=== PATIENT | female | born 1970 | race Caucasian/White ===

== ENCOUNTER 2021-05-04 10:48 | Emergency (ER) | payer MEDICAID, SELFPAY ==
--- NOTE | ~2021-05-04 | CT_ITS ---
EXAMINATION: CT CHEST WITHOUT CONTRAST CLINICAL INFORMATION: Abnormal chest x-ray, cough and chest pain. COMPARISON: Chest x-ray 05/04/2021 TECHNIQUE: Multidetector volumetric CT imaging of the chest was done. Axial MIP volume rendering provided. Sagittal and coronal reformatted images were obtained. This CT examination was performed using dose optimization techniques as appropriate, variously including the following: *Automated exposure control *Adjustment of mA and/or kV according to patient size (this includes techniques or standardized protocols for targeted exams where dose is matched to indication/reason for exam; i.e. extremities or head) *Use of iterative reconstruction technique DLP: 243 mGy-cm FINDINGS: TRAFFIC INCIDENT MANAGEMENT MANAGER: Hyperinflated lungs. LUNGS: There is diffuse centrilobular emphysematous changes of both lungs. There are a few scattered pulmonary nodules. 5 nodules right upper lobe axial image 23/4, 2 mm nodule peripherally based in the lingula axial image 34/4, 3 m nodule left lower lobe adjacent to major fissure axial image 35/4.. There are addition there are several micronodules seen throughout both lungs. There is ill-defined density seen as well with the largest density right upper lobe measuring 7 mm axial image 196/6, 8 mm axial image 215/6. Mild increase interstitial thickening is seen as well No acute consolidation seen. MEDIASTINUM: The thyroid lobes are symmetrical and normal. The central trachea and the bronchi are widely patent. Heart size and the great vessels are normal caliber. There are small shotty lymph nodes in the mediastinum. No pericardial effusion seen. PLEURA: There is no pleural effusion. No pleural mass or thickening. AXILLA: There are small shotty lymph nodes seen in bilateral axilla. UPPER ABDOMEN: Visualized liver, spleen, pancreas and bilateral adrenal glands are unremarkable. OSSEOUS STRUCTURES: There is mild spondylosis. No aggressive lytic or sclerotic process. CT/CT chest wo con IMPRESSION: Diffuse emphysema with multiple bilateral pulmonary nodules and ill-defined densities throughout both lungs as described above. Findings are suggestive chronic interstitial lung disease. No acute consolidation seen. No abnormal mediastinal or hilar lymph nodes seen. Fleischner guidelines were followed.
--- NOTE | ~2021-05-04 | XR_ITS ---
EXAMINATION: XR CHEST CLINICAL INFORMATION: Chest pain. COMPARISON: None TECHNIQUE: 2 views of the chest were obtained. FINDINGS: The lungs are well expanded with increased bilateral vascular interstitial markings without consolidation or pleural effusion. The heart size is normal. No gross bony abnormality seen. XR/XR chest 2V IMPRESSION: Bilateral increased vascular/interstitial markings suspicious for interstitial edema or pneumonitis. No acute pneumonic consolidation seen.
[2021-05-04 10:56] VITALS: BP 121/76; BP 144/82; PULSE 119; PULSE 122; RESP 14; TEMP 37.4; O2SAT 98; BMI 22.4
--- NOTE | 2021-05-04 11:02 | MHC.RECOVRN ---
Received a call from Jolie at [facility], where [place] [facility] If/when pt is medically cleared t/w will discuss pt returning to with Jolie. Pts RN notified via Mona.
--- NOTE | 2021-05-04 11:26 | ECG_ITS ---
Test Reason : CHEST PAIN Blood Pressure : / mmHG Vent. Rate : 112 BPM Atrial Rate : 112 BPM P-R Int : 140 ms QRS Dur : 088 ms QT Int : 344 ms P-R-T Axes : 072 100 062 degrees QTc Int : 469 ms Sinus tachycardia Rightward axis Borderline ECG No previous ECGs available Referred By: Tiny Schneider Electronically Signed By:SLIME MELGAR
--- NOTE | 2021-05-04 11:42 | ED_ITS ---
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 Patient was at [facility] detox waiting room waiting for detox from alcohol when she started to experience some chest burning which prompted her to call the ambulance for transport. Patient tells me that she has this chest burning intermittently and it is worsened after eating and with lying flat. She has associated belching and nausea with it. She denies any vomiting, fever, diarrhea, abdominal pain, difficulty breathing. Patient drinks 6-7 drinks daily. Her last drink was earlier this morning. She denies any additional substance use. She has not received a COVID vaccine Related Data Allergies Allergy/AdvReac Type Severity Reaction Status Date / Time Unable to Assess Allergy Verified 05/04/21 11:25 Review of Systems Review of Systems: Yes all other systems are reviewed and are negative Constitutional: Constitutional: Reports no additional constitutional co mplaints, Denies body ache(s), Denies chills, Denies fever(s), Denies headache(s) and Denies weakness Eyes: Eyes: Reports no additional eye complaints and Denies change in vision ENT: Reports system reviewed and no additional complaints, except as documented, Denies dizziness, Denies headache(s), Denies nasal congestion, Denies nasal discharge and Denies neck pain Cardiovascular: Cardiovascular: Reports no additional cardiovascular complaints, Reports chest pain, Denies leg edema and Denies dyspnea Respiratory: Respiratory: Reports no additional respiratory complaints, Denies cough and Denies dyspnea Gastrointestinal: Gastrointestinal: Reports no additional gastrointestinal complaints, Denies abdominal pain, Denies diarrhea, Reports nausea and Denies vomiting Genitourinary: Genitourinary: Reports no additional female genitourinary complaints and Denies urinary incontinence Musculoskeletal: Musculoskeletal: Reports no additional musculoskeletal complaints, Denies back pain, Denies arthralgias, Denies joint swelling, Denies neck pain, Denies numbness and Denies tingling Integumentary/Breasts: Skin/Breast: Reports system reviewed and no additional complaints, except as docu and Denies rash Neurologic: Reports system reviewed and no additional complaints, except as documented, Denies Abnormal speech present, Denies dizziness, Denies headache(s) , Denies numbness, Denies tingling and Denies weakness PMFSH Past Medical History Attestation statement: The following information was validated with the patient. Source: old records reviewed and nursing notes reviewed Medical History (Updated 05/04/21 @ 18:28 by Tiny Schneider NP) Transverse myelitis Social History Social History (Updated 05/04/21 @ 11:44 by Tiny Schneider NP) Alcohol intake: current Alcohol intake frequency: 0-2 drinks per day Alcohol type: wine and hard liquor Patient Tobacco Use Status: Current everyday Tobacco user Use of substances other than those prescribed or required for medical reasons: No Advance Directives: No Advance Directives Information Provided: No Physical Exam Vital Signs: Vital Signs: Last Vital Signs Temp 99.4 F 05/04/21 10:56 Pulse 99 05/04/21 16:00 Resp 21 H 05/04/21 16:00 BP 171/100 H 05/04/21 16:00 Pulse Ox 98 05/04/21 16:00 BMI result Body Mass Index 22.4 Const: General: cooperative, healthy appearing, comfortable and no acute distress Orientation/consciousness: patient oriented x3 Limitations: no limitations HENMT: Head: Yes normal to inspection Ears: hearing grossly normal bilaterally General nose exam: Normal external nose present Face and sinus: Yes normal facial exam Mouth: Normal oral and palatal mucosa present Throat: Yes posterior oropharynx normal Eyes: General: appearance normal, both eyes and all related structures Pupils: Equal, round and reactive pupils present Neck: Neck: Yes normal visual inspection Chest: Chest palpation & inspection: normal inspection of the chest Resp: Effort & Inspection: normal respiratory effort Auscultation: clear to auscultation bilaterally Cardio: Rate: regular rate Rhythm: regular rhythm Peripheral pulses: Peripheral pulses 2+ throughout GI: Inspection: Yes normal to inspection Palpation (GI): Soft to palpation and nontender Auscultation: normal bowel sounds Back/Spine/Pelvis: Thoracic/Lumbar Spine: thoracic and lumbar spine normal to inspection Skin: General skin exam: no rashes or lesions noted Neuro: General: patient oriented x3, no focal motor deficits and normal sensation to monofilament Cranial nerves: Yes Equal, round and reactive pupils present Cognition (Neuro): normal cognition Speech: No Abnormal speech present Gait exam (Neuro): Normal gait present Motor exam (neuro): 5/5 motor strength present throughout Extrem: General: Yes normal to inspection, Yes no pedal edema and Yes no calf tenderness Course Course Course Narrative: 50 year old female coming from [facility] detox waiting room with reports of intermittent chest burning for several months that is worsened with laying flat and after eating with associated nausea and belching. Patient is seeking for medical clearance she may returned to detox at [facility] for alcohol use disorder. Will check labs, EKG, chest x-ray, COVID screen. Give GI cocktail. Mild ta chycardia with a rate of 115. No obvious withdrawal symptoms. ? Secondary to dehydration. Will give NSB and re-assess. 1245-CXR shows increased vascular congestion vs interstitial pneumonitis. Less likely CHF with no clinical findings concerning for fluid overload. Will add BNP. More likely pneumonitis ?secondary to aspiration d/t alcohol use. Will check Ct Chest to eval further. 1630- Ct chest shows Diffuse emphysema with multiple bilateral pulmonary nodules and ill-defined densities throughout both lungs as described above. Findings are suggestive chronic interstitial lung disease. No acute consolidation seen. No abnormal mediastinal or hilar lymph nodes seen. -at this point patient is medically cleared. Will discuss with the care team. 1845-patient going to [facility] where she has a detox bed MDM - Chest Pain MDM Narrative Medical decision making narrative: gastritis, PUD, ACS (less likely with normal troponin, ekg with no ischemic changes, symptoms > months) Medical Records Data Attestation: I reviewed the patient's medical records. Lab Data Attestation: I reviewed the patient's lab results. Result diagrams: 05/04/21 11:26 05/04/21 11:26 Labs: Lab Results 05/04/21 05/04/21 05/04/21 Range/Units 11:26 11:26 11:26 WBC 14.9 H (4.8-10.8) X10*3/uL RBC 4.53 (4.20-5.50) X10*6/uL Hgb 14.7 (12.0-16.0) g/dl Hct 43.4 (37.0-47.0) % MCV 95.8 (80.0-98.0) fL MCH 32.5 (27.0-33.0) pg MCHC 33.9 (31.0-35.0) g/dl RDW 13.5 (11.0-16.0) % Plt Count 316 (160-400) X10*3/uL MPV 9.3 L (9.4-12.3) fL Immature Gran % (Auto) 0.5 H (0.0-0.4) % Neut % (Auto) 76.7 H (45-73) % Lymph % (Auto) 15.1 L (20-40) % Hyde % (Auto) 7.2 (2-11) % Eos % (Auto) 0.1 (0-4) % Baso % (Auto) 0.4 (0-2) % Lymph # (Auto) 2.2 (1.2-4.9) X10*3/uL Hyde # (Auto) 1.1 (0.1-1.2) X10*3/uL Eos # (Auto) 0.0 (0.0-0.4) X10*3/uL Baso # (Auto) 0.1 (0.0-0.2) X10*3/uL Abs Immat Gran (auto) 0.08 H (0.00-0.03) X10*3/uL Absolute Neuts (auto) 11.4 H (2.0-8.3) x10*3/uL Absolute Nucleated RBC 0.000 (0.0-0.012) X10*3/uL Nucleated RBC % (auto) 0.0 (0.0-0.2) /100WBC PT 10.7 (9.9-13.0) SEC INR 0.9 (0.9-1.1) Sodium 139 (135-145) mmol/L Potassium 3.3 (3.3-5.1) mmol/L Chloride 103 (96-108) mmol/L Carbon Dioxide 20 L (22-29) mmol/L Anion Gap 19 (12-20) BUN 5 L (9-16) mg/dL Creatinine 0.60 (0.5-1.4) mg/dL Estim Creat Clear Calc 100.9 Estimated GFR > 60 Random Glucose 102 (60-115) mg/dL Calcium 9.8 (8.4-10.2) mg/dL Magnesium 1.8 (1.6-2.6) mg/dL Total Bilirubin 0.3 (0.0-1.0) mg/dL Direct Bilirubin 0.2 (0.0-0.5) mg/dL AST 239 H (5-31) U/L ALT 53 H (0-31) U/L Alkaline Phosphatase 96 (39-117) U/L Troponin I High Sens (<3.5-17.0) ng/L B-Natriuretic Peptide (<100) pg/mL Total Protein 7.4 (6.5-8.0) g/dL Albumin 4.2 (3.5-5.0) g/dL Urine Opiates Screen (Not Detect) Urine Fentanyl Screen (Not Detect) Ur Barbiturates Screen (Not Detect) Ur Phencyclidine Scrn (Not Detect) Ur Amphetamines Screen (Not Detect) U Benzodiazepines Scrn (Not Detect) Urine Cocaine Screen (Not Detect) U Marijuana (THC) Screen (Not Detect) Ethyl Alcohol mg/dL COVID-19 (VANESSA) (Negative) COVID-19 Clin Com 05/04/21 05/04/21 05/04/21 Range/Units 11:26 11:54 12:45 WBC (4.8-10.8) X10*3/uL RBC (4.20-5.50) X10*6/uL Hgb (12.0-16.0) g/dl Hct (37.0-47.0) % MCV (80.0-98.0) fL MCH (27.0-33.0) pg MCHC (31.0-35.0) g/dl RDW (11.0-16.0) % Plt Count (160-400) X10*3/uL MPV (9.4-12.3) fL Immature Gran % (Auto) (0.0-0.4) % Neut % (Auto) (45-73) % Lymph % (Auto) (20-40) % Hyde % (Auto) (2-11) % Eos % (Auto) (0-4) % Baso % (Auto) (0-2) % Lymph # (Auto) (1.2-4.9) X10*3/uL Hyde # (Auto) (0.1-1.2) X10*3/uL Eos # (Auto) (0.0-0.4) X10*3/uL Baso # (Auto) (0.0-0.2) X10*3/uL Abs Immat Gran (auto) (0.00-0.03) X10*3/uL Absolute Neuts (auto) (2.0-8.3) x10*3/uL Absolute Nucleated RBC (0.0-0.012) X10*3/uL Nucleated RBC % (auto) (0.0-0.2) /100WBC PT (9.9-13.0) SEC INR (0.9-1.1) Sodium (135-145) mmol/L Potassium (3.3-5.1) mmol/L Chloride (96-108) mmol/L Carbon Dioxide (22-29) mmol/L Anion Gap (12-20) BUN (9-16) mg/dL Creatinine (0.5-1.4) mg/dL Estim Creat Clear Calc Estimated GFR Random Glucose (60-115) mg/dL Calcium (8.4-10.2) mg/dL Magnesium (1.6-2.6) mg/dL Total Bilirubin (0.0-1.0) mg/dL Direct Bilirubin (0.0-0.5) mg/dL AST (5-31) U/L ALT (0-31) U/L Alkaline Phosphatase (39-117) U/L Troponin I High Sens < 3.5 (<3.5-17.0) ng/L B-Natriuretic Peptide 22 (<100) pg/mL Total Protein (6.5-8.0) g/dL Albumin (3.5-5.0) g/dL Urine Opiates Screen POSITIVE H (Not Detect) Urine Fentanyl Screen Not Detected (Not Detect) Ur Barbiturates Screen Not Detected (Not Detect) Ur Phencyclidine Scrn Not Detected (Not Detect) Ur Amphetamines Screen Not Detected (Not Detect) U Benzodiazepines Scrn Not Detected (Not Detect) Urine Cocaine Screen Not Detected (Not Detect) U Marijuana (THC) Screen Not Detected (Not Detect) Ethyl Alcohol mg/dL COVID-19 (VANESSA) Negative (Negative) COVID-19 Clin Com See Note 05/04/21 Range/Units 12:45 WBC (4.8-10.8) X10*3/uL RBC (4.20-5.50) X10*6/uL Hgb (12.0-16.0) g/dl Hct (37.0-47.0) % MCV (80.0-98.0) fL MCH (27.0-33.0) pg MCHC (31.0-35.0) g/dl RDW (11.0-16.0) % Plt Count (160-400) X10*3/uL MPV (9.4-12.3) fL Immature Gran % (Auto) (0.0-0.4) % Neut % (Auto) (45-73) % Lymph % (Auto) (20-40) % Hyde % (Auto) (2-11) % Eos % (Auto) (0-4) % Baso % (Auto) (0-2) % Lymph # (Auto) (1.2-4.9) X10*3/uL Hyde # (Auto) (0.1-1.2) X10*3/uL Eos # (Auto) (0.0-0.4) X10*3/uL Baso # (Auto) (0.0-0.2) X10*3/uL Abs Immat Gran (auto) (0.00-0.03) X10*3/uL Absolute Neuts (auto) (2.0-8.3) x10*3/uL Absolute Nucleated RBC (0.0-0.012) X10*3/uL Nucleated RBC % (auto) (0.0-0.2) /100WBC PT (9.9-13.0) SEC INR (0.9-1.1) Sodium (135-145) mmol/L Potassium (3.3-5.1) mmol/L Chloride (96-108) mmol/L Carbon Dioxide (22-29) mmol/L Anion Gap (12-20) BUN (9-16) mg/dL Creatinine (0.5-1.4) mg/dL Estim Creat Clear Calc Estimated GFR Random Glucose (60-115) mg/dL Calcium (8.4-10.2) mg/dL Magnesium (1.6-2.6) mg/dL Total Bilirubin (0.0-1.0) mg/dL Direct Bilirubin (0.0-0.5) mg/dL AST (5-31) U/L ALT (0-31) U/L Alkaline Phosphatase (39-117) U/L Troponin I High Sens (<3.5-17.0) ng/L B-Natriuretic Peptide (<100) pg/mL Total Protein (6.5-8.0) g/dL Albumin (3.5-5.0) g/dL Urine Opiates Screen (Not Detect) Urine Fentanyl Screen (Not Detect) Ur Barbiturates Screen (Not Detect) Ur Phencyclidine Scrn (Not Detect) Ur Amphetamines Screen (Not Detect) U Benzodiazepines Scrn (Not Detect) Urine Cocaine Screen (Not Detect) U Marijuana (THC) Screen (Not Detect) Ethyl Alcohol 66 mg/dL COVID-19 (VANESSA) (Negative) COVID-19 Clin Com Imaging Data Chest x-ray: Attestation: I personally reviewed and interpreted this imaging study as follows: Radiologist's impression: FINDINGS: The lungs are well expanded with increased bilateral vascular interstitial markings without consolidation or pleural effusion. The heart size is normal. No gross bony abnormality seen. XR/XR chest 2V IMPRESSION: Bilateral increased vascular/interstitial markings suspicious for interstitial edema or pneumonitis. ? No acute pneumonic consolidation seen. CT scan - chest: Attestation: I personally reviewed and interpreted this imaging study as follows: Radiologist's impression: IMPRESSION: Diffuse emphysema with multiple bilateral pulmonary nodules and ill-defined densities throughout both lungs as described above. Findings are suggestive chronic interstitial lung disease. ? No acute consolidation seen. No abnormal mediastinal or hilar lymph nodes seen. ECG Data ECG #1: Attestation: I personally reviewed and interpreted this ECG as follows: ECG interpretation date: 05/04/21 ECG interpretation time: 11:48 Interpretation: Sinus tachycardia with a rate of 112, normal [place], normal QRS, normal QT Discharge Plan Discharge Clinical Impression: Atypical chest pain, GERD (gastroesophageal reflux disease), Alcohol use disor baltazar, moderate, dependence Patient Disposition: Xfer Other Transfer Details: detox Instructions: Chest Pain (ED), Gastroesophageal Reflux Disease (DC), Alcohol Use Disorder (ED) Additional Instructions: Your CT scan shows emphysema with several pulmonary nodules. She can follow-up with your primary care doctor in regards to this. You should consider starting something like omeprazole or Pepcid Go direct to detox Referrals: Gee Ocasio MD [Primary Care Provider] - 2 days Interventions: ED Discharge Assessment Last Done: 05/04/21 18:31 Discharge Date/Time: 05/04/21 18:33 Print Language: Guinean
[2021-05-04] MEDS: Lidocaine HCl Viscous 2 % 15 ML SOLUTION MUCOUS MEM (12:08)
[2021-05-04] MEDS: Magnesium Hydrox/Alum Hydrox 30 ML ORAL.SUSP PO (12:08)
[2021-05-04] MEDS: ondansetron HCL 4 MG/2 ML VIAL IVPUSH (12:08)
[2021-05-04] MEDS: 0.9 % Sodium Chloride 1,000 ML 999 ML IV (12:09)
[2021-05-04 12:14] LABS: MANUAL DIFF FLAG NO
[2021-05-04 12:20] LABS: Basophils Absolute Auto 0.1 X10*3/uL (0.0-0.2); Basophils Percent Auto 0.4 % (0-2); Eosinophils Percent Auto 0.1 % (0-4); Hematocrit 43.4 % (37.0-47.0); Hemoglobin 14.7 g/dl (12.0-16.0); Imm Gran Abs Auto 0.08 X10*3/uL (0.00-0.03); Imm Gran Pct Auto 0.5 % (0.0-0.4); Lymphocytes Absolute Auto 2.2 X10*3/uL (1.2-4.9); Lymphocytes Percent Auto 15.1 % (20-40); Mean Corpuscular HGB Conc 33.9 g/dl (31.0-35.0); Mean Corpuscular Hemoglobin 32.5 pg (27.0-33.0); Mean Corpuscular Volume 95.8 fL (80.0-98.0); Mean Platelet Volume 9.3 fL (9.4-12.3); Monocytes Absolute Auto 1.1 X10*3/uL (0.1-1.2); Monocytes Percent Auto 7.2 % (2-11); Neutrophils Absolute Auto 11.4 x10*3/uL (2.0-8.3); Neutrophils Percent Auto 76.7 % (45-73); Platelet Count 316 X10*3/uL (160-400); Red Blood Count 4.53 X10*6/uL (4.20-5.50); Red Cell Distribution Width 13.5 % (11.0-16.0); White Blood Count 14.9 X10*3/uL (4.8-10.8)
[2021-05-04 12:22] LABS: INTERNATIONAL NORM RATIO 0.9 (0.9-1.1); Prothrombin Time 10.7 SEC (9.9-13.0)
[2021-05-04 12:31] LABS: Amphetamine Screen Urine Not Detected (Not Detect); Barbiturates, Urine Not Detected (Not Detect); Benzodiazepines Screen Urine Not Detected (Not Detect); Cannabinoid Screen Urine Not Detected (Not Detect); Cocaine Screen Urine Not Detected (Not Detect); Fentanyl, urine Not Detected (Not Detect); Opiate Screen Urine POSITIVE (Not Detect); Phencyclidine Screen Urine Not Detected (Not Detect)
[2021-05-04 12:34] LABS: Alanine Aminotransferase 53 U/L (0-31); Albumin Level 4.2 g/dL (3.5-5.0); Alkaline Phosphatase 96 U/L (39-117); Anion Gap 19 (12-20); Aspartate Amino Transferase 239 U/L (5-31); Bilirubin Direct 0.2 mg/dL (0.0-0.5); Bilirubin Total 0.3 mg/dL (0.0-1.0); Blood Urea Nitrogen 5 mg/dL (9-16); Calcium 9.8 mg/dL (8.4-10.2); Carbon Dioxide 20 mmol/L (22-29); Chloride 103 mmol/L (96-108); Creatinine Clr Calc Pharmacy 100.9; Estimated Glomerular Filt Rate > 60; Glucose Random 102 mg/dL (60-115); Magnesium 1.8 mg/dL (1.6-2.6); Potassium 3.3 mmol/L (3.3-5.1); Sodium 139 mmol/L (135-145); Total Protein 7.4 g/dL (6.5-8.0)
[2021-05-04 12:45] LABS: Troponin-I High Sensitivity < 3.5 ng/L (<3.5-17.0)
--- NOTE | 2021-05-04 12:49 | PC.NURSE ---
Pt A+Ox3, reports intermittent chest discomfort, 20G IV placed RAC, labs drawn/urine/C19 obtained and sent to lab, 1L NS infusing, ECG completed, Zofran and GI cocktail given, Pt resting/waiting for results
[2021-05-04 13:08] LABS: Ethanol 66 mg/dL
[2021-05-04 13:14] LABS: B Type Natriuretic Peptide 22 pg/mL (<100)
[2021-05-04 13:20] LABS: COVID-19 Test Negative (Negative); IDNOW Serial# 16C4AD1C
[2021-05-04 14:00] VITALS: BP 142/92; PULSE 105; RESP 14; O2SAT 96
--- NOTE | 2021-05-04 14:16 | PC.NURSE ---
Pt resting/watching tv, sipping jyoti karen, Pt reports chest discomfort unchanged, provider aware.
[2021-05-04 16:00] VITALS: BP 171/100; PULSE 99; RESP 21; O2SAT 98
[2021-05-04] MEDS: LORazepam 2 MG/ML VIAL 1 MG IVPUSH (17:55)
== END 2021-05-04 18:33 | disposition other institution (70) ==
PROVIDERS: Nurse Practitioner Family; Emergency Provider Emergency Medicine; PCP Internal Medicine
DX: R07.89 Other chest pain (principal); K21.9 Gastro-esophageal reflux disease without esophagitis; F10.288 Alcohol dependence with other alcohol-induced disorder; Y90.3 Blood alcohol level of 60-79 mg/100 ml; Z20.822 Contact with and (suspected) exposure to COVID-19; F17.200 Nicotine dependence, unspecified, uncomplicated
CPT/HCPCS: 36415; 71046; 71250; 80048; 80076; 80307; 82077; 83735; 83880; 84484; 85025; 85610; 87635; 93005; 96361; 96374; 96375; 99284; 99285; J2060; J2405

== ENCOUNTER 2022-02-20 12:40 | Outpatient (REF) | payer MEDICAID, SELFPAY ==
--- NOTE | ~2022-02-20 | MR_ITS ---
MR BRAIN WITHOUT AND WITH CONTRAST CLINICAL INFORMATION: Demyelinating disease. COMPARISON: Brain MRI 04/17/2016. TECHNIQUE: Multiplanar, multisequence MRI of the brain was obtained before and after the intravenous administration of 6.5 mL of Gadavist. FINDINGS: There is no pathologic intracranial enhancement. Stable mild T2 signal changes scattered throughout the supratentorial white matter in a nonspecific distribution. There is no hydrocephalus, extra-axial surface collection, or herniation. The major flow voids at the skull base are preserved. There is no acute infarct on diffusion-weighted imaging. There is no intracranial hemorrhage on the gradient recalled echo acquisition. The midline structures are normal. The cerebellar tonsils are normally positioned. The cerebellum and brainstem are normal. The craniocervical junction is normal. Osseous marrow signal intensity is homogenous. The visualized soft tissues are unremarkable. MR/MR head/brain wo/w con IMPRESSION: Stable mild T2 signal changes scattered throughout the supratentorial white matter in a nonspecific distribution. No pathologic enhancement intracranially.
== END 2022-02-20 12:41 | disposition home or self-care (01) ==
LOC: HO.MRI 12:40
PROVIDERS: Visit Provider Psychiatry & Neurology Neurology
DX: G37.9 Demyelinating disease of central nervous system, unspecified (principal)
CPT/HCPCS: 70553; A9585